=== PATIENT | female | born 1945 | race Caucasian/White ===

== ENCOUNTER 2025-03-05 13:27 | Inpatient (IN) | payer OTHER, SELFPAY ==
[2025-03-04] VITALS (7 sets, daily range): BP systolic 127–150; BP diastolic 51–68; BMI 24.5
--- NOTE | 2025-03-04 14:38 | ED.GENMED ---
History of Present Illness
<Sarah Palm PA-C - Last Filed: 03/04/25 22:27>
General
Chief Complaint: Fall
Source: patient
Exam Limitations: none
Time Seen by Provider: 03/04/25 14:21
Nursing documentation reviewed up to this point in time: agreed with
History of Present Illness
History of Present Illness:
Patient is an 80-year-old female who presents to the emergency department with left hip pain after mechanical fall just prior to arrival. Patient states she missed a step while walking falling backwards and landing on her left hip. She is adamant
that there was no head strike or loss of consciousness. Patient has had significant pain in her left hip/groin since fall and has been unable to weight-bear.
She denies any numbness/tingling of left lower extremity. No pain in her upper extremities. She denies any headache, neck pain, back pain.
She is not on any oral anticoagulation.
Review of Systems
<Sarah Palm PA-C - Last Filed: 03/04/25 22:27>
Review of Systems
Allergies reviewed?: Yes
All Other Systems: ROS reviewed and negative except as documented in HPI and ROS
Phy Exam
<Sarah Palm PA-C - Last Filed: 03/04/25 22:27>
Physical Exam
Physical Exam:
Vitals: Hypertensive, otherwise vital signs stable. Afebrile
General: Patient is uncomfortable appearing due to pain
Skin: Warm and dry, no rashes or lesions
Head: Normocephalic, atraumatic
Eyes: Sclera nonicteric. EOMs intact. No nystagmus.
Throat: Protecting airway
Neck: Normal ROM, no cervical spine tenderness, no meningismus
Cardiac: Regular rate and rhythm, no murmurs.
Pulm: Normal respiratory effort, no wheezes, rales, rhonchi heard on exam
Abdomen: Abdomen soft and nontender. No ecchymoses
Extremities: No obvious deformity of left lower extremity. Significant tenderness to palpation in left inguinal region. Pain with both internal/external rotation of left hip. Abrasion/ contusion noted to left buttock. Normal sensation and
capillary refill in LLE. 2+ palpable DP pulses bilaterally.
Neuro: AAOx3. Grossly intact.
Psychiatric: Normal affect.
Course
<Sarah Palm PA-C - Last Filed: 03/04/25 22:27>
Orders/Labs/Results
Orders:
Orders
03/04/25 14:16
Hip, Left 2-3 Views [CR Hip - LT w/wo Pel 2-3 Vw*] Urgent
Comment:
Reason For Exam: fall
Include a pelvis x-ray?: Yes
03/04/25 14:49
Acetaminophen [Tylenol] 650 mg PO NOW STA
03/04/25 Dinner
Regular
At Your Request: Full Participation
03/04/25 15:14
Basic Metabolic Panel Urgent
Complete Blood Count/With Diff Urgent
03/04/25 15:35
Morphine Sulfate 4 mg IV NOW STA
03/04/25 15:43
Admit/Transfer Patient As Directed
Co-Sign Provider:
Level of Care: Observation services
Assign to:: Medical/Surgical
Physician / Group: Evangelista Sorto
Diagnosis: pelvic fracture
03/04/25 15:44
Code Status As Directed
Resuscitation Status: Full Code
PRN Pain Medication Management As Directed
May give lesser potent ordered pain med per pt: Yes
preference::
Protocol:: Medication orders for pain may be administered in a
manner that supports deferring to patient preference
when the pt is:
- Requesting an ordered lesser potent pain medication.
Least to most potent pain medications are defined
as: acetaminophen < NSAID < tramadol < opioids
(morphine, oxycodone, hydromorphone).
- Requesting a lesser dose of the same medication IF
ORDERED.
- Requesting a less intrusive route of administration
if both routes are prescribed by the provider (PO <
IV).
03/04/25 19:45
Acetaminophen [Tylenol] 650 mg PO Q4HPRN PRN
Bisacodyl [Dulcolax] 10 mg RECTAL [id number] PRN
Docusate W/Senna [Senokot-S] 1 tablet PO BIDPRN PRN
Enoxaparin Sodium [Lovenox] 40 mg SC QPM
Ketorolac [Toradol] 10 mg IV Q6HPRN PRN
Morphine Sulfate 2 mg IV Q4HPRN PRN
Polyethylene Glycol Powder [Miralax] 17 grams PO DAILYPRN PRN
03/04/25 19:45
Activity As Directed
Activity Level: As Tolerated
Vital Signs As Directed
Frequency: Per unit guidelines
Weight As Directed
Frequency: Once
Comment: on admission
Pt Eval And Treat Routine
Activity Level: As Tolerated
DX Deep Vein Thrombosis Video Routine
03/11/25 08:00
Levothyroxine [Synthroid] 487.5 mcg PO AVILES
Abnormal Lab Results
03/04/25
15:14
Absolute Monos (auto) 0.7 H 10^3/uL
(0.1-0.6)
Lymphocytes % 14.6 L %
(20.5-51.1)
Glucose 135 H mg/dl
(70-99)
03/04/25 15:14
03/04/25 15:14
Vital Signs
Initial and Last Documented VS:
Initial Vital Signs
BP
150/55
03/04/25 14:03
Last Documented Vital Signs
Temp Pulse Resp BP Pulse Ox
98.4 F 91 20 139/68 97
03/04/25 19:54 03/04/25 19:54 03/04/25 19:54 03/04/25 19:54 03/04/25 19:54
<Ramo IamNeema Quiñones DO - Last Filed: 03/04/25 16:11>
Orders/Labs/Results
Orders:
Orders
03/04/25 14:16
Hip, Left 2-3 Views [CR Hip - LT w/wo Pel 2-3 Vw*] Urgent
Comment:
Reason For Exam: fall
Include a pelvis x-ray?: Yes
03/04/25 14:49
Acetaminophen [Tylenol] 650 mg PO NOW STA
03/04/25 Dinner
Regular
At Your Request: Full Participation
03/04/25 15:14
Basic Metabolic Panel Urgent
Complete Blood Count/With Diff Urgent
03/04/25 15:35
Morphine Sulfate 4 mg IV NOW STA
03/04/25 15:43
Admit/Transfer Patient As Directed
Co-Sign Provider:
Level of Care: Observation services
Assign to:: Medical/Surgical
Physician / Group: Evangelista Sorto
Diagnosis: pelvic fracture
03/04/25 15:44
Code Status As Directed
Resuscitation Status: Full Code
PRN Pain Medication Management As Directed
May give lesser potent ordered pain med per pt: Yes
preference::
Protocol:: Medication orders for pain may be administered in a
manner that supports deferring to patient preference
when the pt is:
- Requesting an ordered lesser potent pain medication.
Least to most potent pain medications are defined
as: acetaminophen < NSAID < tramadol < opioids
(morphine, oxycodone, hydromorphone).
- Requesting a lesser dose of the same medication IF
ORDERED.
- Requesting a less intrusive route of administration
if both routes are prescribed by the provider (PO <
IV).
03/04/25 19:45
Acetaminophen [Tylenol] 650 mg PO Q4HPRN PRN
Bisacodyl [Dulcolax] 10 mg RECTAL [id number] PRN
Docusate W/Senna [Senokot-S] 1 tablet PO BIDPRN PRN
Enoxaparin Sodium [Lovenox] 40 mg SC QPM
Ketorolac [Toradol] 10 mg IV Q6HPRN PRN
Morphine Sulfate 2 mg IV Q4HPRN PRN
Polyethylene Glycol Powder [Miralax] 17 grams PO DAILYPRN PRN
03/04/25 19:45
Activity As Directed
Activity Level: As Tolerated
Vital Signs As Directed
Frequency: Per unit guidelines
Weight As Directed
Frequency: Once
Comment: on admission
Pt Eval And Treat Routine
Activity Level: As Tolerated
DX Deep Vein Thrombosis Video Routine
03/11/25 08:00
Levothyroxine [Synthroid] 487.5 mcg PO AVILES
Abnormal Lab Results
03/04/25
15:14
Absolute Monos (auto) 0.7 H 10^3/uL
(0.1-0.6)
Lymphocytes % 14.6 L %
(20.5-51.1)
Glucose 135 H mg/dl
(70-99)
03/04/25 15:14
03/04/25 15:14
Vital Signs
Initial and Last Documented VS:
Initial Vital Signs
BP
150/55
03/04/25 14:03
Last Documented Vital Signs
Temp Pulse Resp BP Pulse Ox
98.4 F 91 20 139/68 97
08/24/25 19:54 03/04/25 19:54 03/04/25 19:54 03/04/25 19:54 03/04/25 19:54
<Sarah Palm PA-C - Last Filed: 03/04/25 22:27>
MDM/Problems Addressed
Differential Diagnosis Includes:
Not limited to: Hip fracture, hip dislocation, pelvic fracture, contusion, etc.
MDM/Problems Addressed:
80-year-old female with left hip pain and inability to bear weight following mechanical fall today. There was no head strike or loss of consciousness. Vitals and physical exam as above. No evidence of head or neck trauma. No evidence of back, chest,
or abdominal trauma. No deformity noted to left lower extremity however does have significant tenderness to palpation in left groin and with any movement of left hip, as well as at rest. Will treat pain. X-ray of left hip pending.
Update: x-ray of left hip w/ suspected pelvis fractures of pubic rami on left side. Given degree of pain and inability to ambulate � will admit patient for pain control, possible rehab placement. Official report pending. Hospitalist aware.
Update: Radiology read of left hip x-ray does reveal additional acetabular fracture as well as inferior pubic rami fracture. Case discussed w/ orthopedics, Dr. Krause at this point. Will obtain pelvic CT.
Update: Pelvis CT reviewed by orthopedics, Dr. Krause, which does confirm acetabular fracture. Recommendation by orthopedics given age � likely non-operative, [id number] and outpatient orthopedic follow up. Discussed at length w/ patient
who is currently visiting from [place]. Will continue with plan of admission for pain control, and possible placement. She will plan for likely orthopedic follow up back in [place] once arriving home.
Orthopedic recommendations discussed directly with admitting hospitalist team, Gillian AVELAR, including recommendation for anticoagulation for trip back to [place].
Chronic conditions affecting care:
N/A
Acute Exacerbation and/or Progression of Chronic Illness:
N/A
<Sarah Palm PA-C - Last Filed: 03/04/25 22:27>
*Radiology
Radiology exam reviewed: preliminary read by ED provider (Left hip xray reviewed by me - inferior pubic rami fracture) and radiology read reviewed
*Pulse Oximetry
SaO2: 99
Oxygen Mode of Delivery: Room air
Patient hypoxic: no
*EKG
Interpreted by ED Provider?: NA
*Scraper Hand Interpretation
Rate: Scraper Hand- N/A
*Critical Care Note
Total Time (30-74mins, 75-104mins- exclusive of procedures): Not Applicable
<Sarah Palm PA-C - Last Filed: 03/04/25 22:27>
Patient Management
Discussion with other providers: Hospitalist and Cellar [facility] (Case discussed with orthopedics)
ED Attending Note
<Sarah Palm PA-C - Last Filed: 03/04/25 22:27>
-
Portions of this chart may have been created with voice recognition software.� Occasional wrong word or��sound alike� substitutions may have occurred due to the inherent limitations of voice recognition software.
<Ramo Quiñones, - Last Filed: 03/04/25 16:11>
ED Attending Note
Patient seen and examined by attending physician: Yes
I performed the substantive portion of visit, reviewed & personally made and approve the management plan that is documented in note by myself or GABRIELLE.: Yes
ED Attending Note:
Patient suffered a fall after losing her balance. Patient complaining of pain to her left hip and pelvis. Patient traveling from [place].
General: Awake, Alert, Oriented X3. Appears uncomfortable
Vitals: unremarkable
Head: Atraumatic
Eyes: Pupils equal, EOMI
Throat: Airway intact, no exudates
Neck: Trachea midline
Abd: Soft, Nontender, No pulsatile mass
Neuro: Nonfocal
Skin: Warm, dry, no rash
Extremities: pulses equal b/l, no edema. Pain with minimal range of motion left hip.
X-ray shows pubic ramus fracture. Awaiting final report. Patient will require hospitalization for pain control
Discharge Plan
Departure
Patient Disposition: Admit
Date of Disposition: 03/04/25
Time of Disposition: 15:02
Presentation/result/management discussed w/ accepting MD/DO: Hospitalist
Discharge Problem:
Pelvic fracture, Acetabular fracture
Interventions
Interventions:
*Risk Screen - Suicide Last Done: 03/04/25 15:10
*General Assessment Last Done: 03/04/25 15:10
*Neglect/Abuse Screening Last Done: 03/04/25 15:10
*ED- Fall Risk Assessment Last Done: 03/04/25 15:10
*ED COVID-19 Vaccine History Last Done: 03/04/25 19:37
*Nursing Disposition Last Done: 03/04/25 19:37
ED-Musculoskeletal Assessment Last Done: 03/04/25 13:59
ED- Neurological Assessment Last Done: 03/04/25 13:59
ED-Skin Assessment Last Done: 03/04/25 13:59
Discharge Date and Time
Discharge Date/Time: 03/04/25 19:38
[2025-03-04] MEDS: TYLENOL 650 MG PO (15:11)
--- NOTE | 2025-03-04 15:12 | HPS.HSE ---
Addendum entered and electronically signed by Evangelista Sorto MD 03/04/25 16:29:
This is an addendum to H&P written by Nayely Busby on 03/04/2025. �Patient seen and examined independently with [facility]TER.
80-year-old female [facility] hypothyrodism, osteoporosis who lives in [place] past medical history of presenting with left hip and groin pain with inability to bear weight after mechanical fall. �No head injury. �Denies numbness or tingling.
Vital signs normal.
Hip x-ray shows comminuted left acetabular fracture extending into the left iliac wing/pubic rami fracture. �There is additional fracture of the left inferior pubic ramus.
Pain control. �PT/OT.
Original Note:
Family Physician
-
Family Physician:
Chief Complaint
-
mechanical fall
History of Present Illness
Patient is a 80-year-old female with past medical history significant for hypothyroidism who presented to [facility] ED for evaluation s/p mechanical fall. Patient and spouse visiting the area from [place], they were at lunch this afternoon with family when
patient was trying to take a picture took a step backwards and misstepped on curb falling backwards on left hip. She denies any other injuries and denies head strike.
Medical History
Past Medical History
Past Medical History: Reports Other
Additional Past Medical History:
hypothyroidism
osteoporosis
ALIS
Hx endometrial cancer 2001 (chemo/radiation/SHAJI)
Past Surgical History: Reports Other
Additional Past Surgical History:
appendectomy
total hysterectomy
cholecystectomy
Social History
Tobacco: Non-smoker
Alcohol: Occasional
Drug: None
Personal:
Living: With Family
Employment: Retired
Family History
Family History: Not pertinent
Allergies / Home Medications
Allergies reflects when Allergies were last updated in [facility].
Home Medications with original date entered in [facility]
Allergy/Medication List:
Allergies
Allergy/AdvReac Type Severity Reaction Status Date / Time
Sulfa (Sulfonamide Allergy Unknown Unknown Verified 03/04/25 15:14
Antibiotics)
terfenadine (From Seldane) Allergy Unknown Unknown Verified 03/04/25 15:14
Home Medications
levothyroxine 75 mcg tablet 487.5 mcg PO AVILES 03/04/25
Review of Systems
-
History Source: Patient
Constitutional: Reports No Symptoms
EENT: Reports No Symptoms
Respiratory: Reports No Symptoms
Cardiac: Reports No Symptoms
Abdomen/GI: Reports No Symptoms
: Reports No Symptoms
Musculoskeletal: Reports Joint Pain (left hip pain)
Skin: Reports No Symptoms
Neurological: Reports No Symptoms
Endocrine: Reports No Symptoms
Hematologic/Lymphatic: Reports No Symptoms
Psych: Reports No Symptoms
Physical Exam
Vital Signs
Vital Signs
Temp Pulse Resp BP Pulse Ox
98.0 F 92 18 150/55 99
03/04/25 14:04 03/04/25 14:04 03/04/25 14:04 03/04/25 14:04 03/04/25 14:39
Physical Exam
General: Well Developed, Well Nourished, No Apparent Distress and Conversant
HEENT: NormoCephalic, Moist mucous membranes and Atraumatic
Respiratory: Clear and Non Labored Respirations
Cardiac: S1/S2 and Regular Rhythm; No Murmur, Rub or Gallop
GI: Soft, Non Tender, Non Distended and Normal Bowel Sounds; No Organomegaly
Musculoskeletal: No Clubbing, No Cyanosis, No Edema and Other (left hip discomfort with movement and rest )
Skin: Warm and IV/Catheter Site
Neuro: Awake, AO x 3 and Nonfocal/grossly intact
Hematologic/Lymphatic: No Lymphadenopathy
Psych: Calm and Intact Judgment/Insight
Data Reviewed
-
Diagnostic Radiology: Report Reviewed by me (Lt hip: There is a comminuted left acetabular fracture extending into the left iliac wing. There is an additional fracture of the left inferior pubic ramus. )
Lab Data: Labs Reviewed by me
Impression/Plan
-
IMPRESSION/PLAN:
#pelvic fracture 2/2 mechanical fall
#osteoporosis
Left Hip x-ray: There is a comminuted left acetabular fracture extending into the left iliac wing. There is an additional fracture of the left inferior pubic ramus.
- Admit to med/surg
- Consult PT
- pain regimen
#hypothyroidism
- continue levothyroxine
#ALIS
CPAP HS
Code status: full code
DVT prophalaxis: Lovenox sq
[2025-03-04 15:25] LABS: Hematocrit 37.4 % (37.0-47.0); Hemoglobin 12.7 g/dL (12.0-16.0); Mean Corp Hgb Conc. 34.0 g/dL (33.0-37.0); Mean Corpuscular Volume 89.0 fL (81.0-99.0); Nucleated Red Blood Cells % 0 %; Platelet Count 196 10^3/uL (130-400); Red Cell Dist. Width 12.9 % (11.5-14.5)
[2025-03-04 15:35] LABS: Blood Urea Nitrogen 17 mg/dl (7-17); Calcium 9.2 mg/dl (8.4-10.2); Carbon Dioxide 29 mmol/L (22-30); Chloride 107 mmol/L (98-107); Estimated Creatinine Clearance 37 ml/min; Glucose 135 mg/dl (70-99); Potassium 3.8 mmol/L (3.5-5.1); Sodium 138 mmol/L (135-145); eGFR 56.25
[2025-03-04] MEDS: MORPHINE SULFATE 4 MG IV (15:53)
--- NOTE | 2025-03-04 15:57 | CM ---
CM reviewed chart and met with pt bedside in ED. Pt lives with her in [place], 2 story home with 2 DILLON, first floor BA. Currently staying with her 's brother and his family in [place], 2 story house with first floor DE and
full BA in MBR. No DILLON.
Independent in ADLs, personal care and ambulation at baseline, no assistive devices.
CALLE reviewed and signed. Confirms prescription coverage.
No hx VN or SNF.
PCP in [place]: [facility] Welch
Local Pharmacy: [facility] [place]
CM will continue to follow for any discharge planning needs.
[2025-03-04] MEDS: LOVENOX 40 MG SC (20:26)
[2025-03-04] MEDS: TORADOL 10 MG IV (20:37)
--- NOTE | 2025-03-04 20:53 | PTCARENOTE ---
Pt. arrived to unit from ED via stretcher. Pt. pulled over from stretcher to bed in room 317-1 on . Pt. AAOx3 and able to make needs known. Oriented to unit. Call murcia within reach. Plan of care ongoing.
[2025-03-05] MEDS: MORPHINE SULFATE 2 MG IV ×3 (02:45→17:50)
[2025-03-05] MEDS: TORADOL 10 MG IV ×2 (06:09→12:28)
[2025-03-05 07:00] VITALS: BP 153/56
--- NOTE | 2025-03-05 08:34 | PTOTSP ---
Please order OT consult for ADL dysfunction. Thank you.
--- NOTE | 2025-03-05 10:23 | CON.ORTHO ---
Consultation
-
Date/Time Consultation Requested: 03/04/2025; time unknown
Date/Time Consultation Performed: 03/05/2025
Requesting Provider: unknown
Performing Provider: Larisa Saunders PA-C
Reason for Consultation: Left acetabulum fracture
Consultation - Orthopedics
History
Ms. Villafana is an 80 year old female with PMH of hypothyroidism and osteoporosis seen today for her left hip. She reports she stepped back off a curb and fell backwards. She experienced immediate onset of pain in her hip, and was unable to get up off
the ground. She was brought to ED via EMS where x-rays revealed a comminuted acetabular fracture and inferior pubic ramus fracture. She is resting in bed this morning, but does endorse persistent discomfort about the hip. She also endorses pain
in her low back, but believes this is due to laying down. She is visiting from [place].
Allergies / Home Medications
Allergy/AdvReac Type Severity Reaction Status Date / Time
Sulfa (Sulfonamide Allergy Unknown Unknown Verified 03/04/25 15:14
Antibiotics)
terfenadine (From Seldane) Allergy Unknown Unknown Verified 03/04/25 15:14
�Medication �Instructions �Recorded
calcium carbonate 975 mg-magnesium 1 tab PO BID Supplement 03/04/25
carbonate 232 mg oral tablet
levothyroxine 75 mcg tablet 487.5 mcg PO AVILES Thyroid 03/04/25
Vital Signs / Lab Results
Temp Pulse Resp BP Pulse Ox
98.5 F 78 16 153/56 98
03/05/25 07:00 03/05/25 07:00 03/05/25 07:00 03/05/25 07:00 03/05/25 07:00
03/04/25 15:14
03/04/25 15:14
XR Left Hip IMPRESSION:
There is a comminuted left acetabular fracture extending into the left iliac wing. There is an additional fracture of the left inferior pubic ramus.
CT Pelvis IMPRESSION:
There is a highly comminuted and mildly displaced fracture of the left acetabulum involving the anterior and posterior columns with extension into the left iliac wing extending up to the anterior inferior iliac spine. There is associated adjacent
mild soft tissue swelling with a 3.7 cm hematoma in the left iliacus muscle.
Mildly displaced left inferior pubic ramus fracture.
Directed exam of the left lower extremity reveals no obvious erythema, ecchymosis, edema or lesions. Mild tenderness to palpation about the hip. Discomfort with log roll. Calf soft and nontender. Neurovascularly intact distally.
Assessment / Plan
Comminuted, mildly displaced acetabular fracture; inferior pubic ramus fracture
--Unfortunately, Rayna sustained the above fractures in her fall. Thankfully, these are minimally displacedand can be managed non-operatively. She should be NWB to her LLE. She may perform gentle ROM of the hip as tolerated. Pain control prn.
Patient would likely benefit from PT/OT while in house. Case management for dc planning. We would be happy to see the patient as an outpatient, but she may also follow up with orthopedics once she returns home. Would recommend DVT prophylaxis for
travel back to [place]. Orthopedics will sign off for now. Please reengage with any additional orthopedic questions or concerns.
--- NOTE | 2025-03-05 11:39 | W.PN.HOSP.TC ---
Today's Communication/Plan
-
pain control
oob/pt/ot
Assessment / Plan
Assessment / Plan
#Comminuted, mildly displaced acetabular fracture;
#inferior pubic ramus fracture
#3.7 cm hematoma in the left iliacus muscle.
worsening in setting of ?osteopenia
- Pain control. Bowel regimen.
- Nonweightbearing per orthopedics.
- Nonoperative management per orthopedic
- Appreciate orthopedic input
- Await PT/OT
#hypothyroidism
-on unusual regimen of 487.5mcg weekly
#ALIS
CPAP HS
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
Code status: full code
DVT prophalaxis: Lovenox sq
Discussed with patient at bedside in detail
Anticipated Discharge: Within 24 hours
Subjective/Interval History
-
Date of Service: March 05, 2025
states of L hip/groin pain
Patient visiting from [place]
Objective Data
-
Vital Signs:
Vital Signs
Temp Pulse Resp BP Pulse Ox
98.5 F 78 16 153/56 98
03/05/25 07:00 03/05/25 07:00 03/05/25 07:00 03/05/25 07:00 03/05/25 07:00
I&O
03/04/25 03/05/25 03/06/25
06:59 06:59 06:59
Intake Total 200 / 200
Output Total 320 / 320
Balance -120 / -120
Physical Exam
-
General: Well Developed and No Apparent Distress
HEENT: Normocephalic, Atraumatic and Moist Mucous Membranes
Respiratory: Clear to Auscultation
Cardiac: Regular Rhythm and S1/S2; Negative Murmur, Rub or Gallop
GI: Soft, Nontender, Nondistended and Normal Bowel Sounds; Negative Organomegaly
Rectal: Deferred by Provider
Musculoskeletal: No Edema
Skin: Negative Rash
Neuro: Awake, Alert, Oriented, AO x 3, No Motor Deficits and Nonfocal/Grossly Intact
Psych: Calm
[2025-03-05 12:25] VITALS: BP 148/65; PULSE 83; O2SAT 96
[2025-03-05 12:26] VITALS: BP 148/65; PULSE 83; O2SAT 96
[2025-03-05 15:00] VITALS: BP 128/60
[2025-03-05] MEDS: LOVENOX 40 MG SC (17:49)
[2025-03-05 23:17] VITALS: BP 142/57
[2025-03-06] MEDS: TYLENOL 650 MG PO (02:32)
[2025-03-06 08:07] VITALS: BP 140/55
--- NOTE | 2025-03-06 08:22 | PN.CDI ---
CDI
- -
CDI:
Physician Documentation Request
Admit Date: 03/05/25 13:27
Dear Doctor Luna,
Please review the following and provide your response in the progress notes.
Clinical Indicators:
Pt admitted with Comminuted, mildly displaced acetabular fracture; inferior pubic ramus fracture and a 3.7 cm hematoma in the left iliacus muscle.
03/04 CT Pelvis: There is a highly comminuted acetabular fracture involving the anterior and posterior columns. This extends into the left iliac wing extending anterior to the left anterior inferior iliac spine. There is an associated hematoma within
the left iliac is unremarkable measuring approximately 3.7 cm in thickness. There is mild sclerosis of the bilateral sacroiliac joints. Diffuse osteopenia. There is additional mildly displaced fracture through the left inferior pubic ramus.
03/05 Orthopedics: 'Ms. Villafana is an 80 year old female with PMH of hypothyroidism and osteoporosis seen today for her left hip. She reports she stepped back off a curb and fell backwards.'
03/05 Progress note: ' #Comminuted, mildly displaced acetabular fracture;
#inferior pubic ramus fracture
#3.7 cm hematoma in the left iliacus muscle.
worsening in setting of ?osteopenia'
Please provide further specificity regarding the diagnosis of fracture:
Etiology
Traumatic
Pathologic due to osteoporosis
Due to a combination of trauma and a pathological process
but the trauma alone would not likely have been sufficient
to cause the fracture
Other
Use of terms such as suspected, likely, concern for, or probable (associated with a specific diagnosis that is being evaluated, monitored, or treated as if it exists) are acceptable and can be coded in the inpatient setting, when documented at the
time of discharge.
Thank you,
Lizy Brooks RN, BSN
CDI Specialist
[place] [facility]
Please use your independent medical judgment in providing your response.
--- NOTE | 2025-03-06 11:04 | CM ---
Addendum entered by Lalo Heck 03/06/25 12:11:
[facility] offered a bed and an auth requested. Both pt and her are aware, expressed their agreement.
[facility]
Accepting physician: Dr. Sena Prieto
CM initiated an auth from [facility] [phone], spoke to specialty sales representative Yissel, required prior authorization form printed from [email or web address] website, completed and with pt's clinical and [facility] NPI
faxed to [facility] for review [phone].
Awaiting for an authorization
D/C plan: [facility] when an auth available.
CM will follow to assit pt with discharge to [facility].
Original Note:
CM following re: discharge planning.
Reviewed pt's chart, met with pt and pt's at bedside.
PT and OT evaluations noted - SNF level of care recommended. Both pt and her are aware, expressed their agreement. A list of SNFs provided. both pt and her stated they are staying at brother's house at [facility] and they
requested a SNF in [facility].
A referral made to following SNFs: [facility], [facility]. [facility]. A referral to above SNfs made. Awaiting for determination.
IMM reviewed, placed on chart, pt has a copy.
D/c plan: preferred SNF
CM will follow to assist pt with discharge to a preferred SNF.
--- NOTE | 2025-03-06 11:25 | W.PN.HOSP.TC ---
Today's Communication/Plan
-
await placement
pain control
Assessment / Plan
Assessment / Plan
General: Well Developed and No Apparent Distress
HEENT: Normocephalic, Atraumatic and Moist Mucous Membranes
Respiratory: Clear to Auscultation
Cardiac: Regular Rhythm and S1/S2;
GI: Soft, Nontender, Nondistended and Normal Bowel Sounds; Negative Organomegaly
Musculoskeletal: No Edema
Skin: Negative Rash
Neuro: Awake, Alert, Oriented, AO x 3, No Motor Deficits and Nonfocal/Grossly Intact
Psych: Calm
#Comminuted, mildly displaced acetabular fracture likely multifactorial in the setting of trauma from the fall and diffuse osteopenia
#inferior pubic ramus fracture
#3.7 cm hematoma in the left iliacus muscle.
- Pain control. Bowel regimen.
- Nonweightbearing per orthopedics.
- Nonoperative management per orthopedic
- Appreciate orthopedic input
- PT/OT rec SNF
#hypothyroidism
-on unusual regimen of 487.5mcg weekly. Per patient her thyroid function and blood work has been normal and she has been continued on this regiment by her doctors in [place].
#ALIS
CPAP HS
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
Code status: full code
DVT prophalaxis: Lovenox sq
Discussed with patient at bedside in detail
PT/OT recs SNF. Cm aware. Await placement.
Anticipated Discharge: Today
Subjective/Interval History
-
Date of Service: March 06, 2025
states of dull achy left leg pain
Objective Data
-
Vital Signs:
Vital Signs
Temp Pulse Resp BP Pulse Ox
98.6 F 77 14 140/55 99
03/06/25 08:07 03/06/25 08:07 03/06/25 08:07 03/06/25 08:07 03/06/25 08:07
I&O
03/05/25 03/06/25 03/07/25
06:59 06:59 06:59
Intake Total 200 / 200 1120 / 1120
Output Total 320 / 320
Balance -120 / -120 1120 / 1120
[2025-03-06] MEDS: ROXICODONE 5 MG PO (12:22)
[2025-03-06 15:35] VITALS: BP 122/50
[2025-03-06 15:55] VITALS: BP 135/58; PULSE 108
[2025-03-06 15:57] VITALS: BP 135/58; PULSE 108
[2025-03-06] MEDS: LOVENOX 40 MG SC (17:08)
[2025-03-06] MEDS: TYLENOL 1000 MG PO ×2 (17:08→21:27)
[2025-03-06 23:00] VITALS: BP 121/52
[2025-03-07] MEDS: ROXICODONE 5 MG PO ×2 (06:19→16:10)
[2025-03-07 07:50] VITALS: BP 123/53
[2025-03-07] MEDS: TYLENOL 1000 MG PO ×3 (08:04→21:00)
[2025-03-07] MEDS: MIRALAX 17 GRAMS PO (10:25)
--- NOTE | 2025-03-07 11:43 | W.PN.HOSP.TC ---
Today's Communication/Plan
-
pain control
rehab
await placement
Assessment / Plan
Assessment / Plan
General: Well Developed and No Apparent Distress
HEENT: Normocephalic, Atraumatic and Moist Mucous Membranes
Respiratory: Clear to Auscultation
Cardiac: Regular Rhythm and S1/S2;
GI: Soft, Nontender, Nondistended and Normal Bowel Sounds; Negative Organomegaly
Musculoskeletal: No Edema
Skin: Negative Rash
Neuro: Awake, Alert, Oriented, AO x 3, No Motor Deficits and Nonfocal/Grossly Intact
Psych: Calm
#Comminuted, mildly displaced acetabular fracture likely multifactorial in the setting of trauma from the fall and diffuse osteopenia
#inferior pubic ramus fracture
#3.7 cm hematoma in the left iliacus muscle.
- Pain control. tylenol 1000mg TID. Oxycodone prn. Morphine for severe pain only. Bowel regimen.
- Nonweightbearing per orthopedics.
- Nonoperative management per orthopedic
- Appreciate orthopedic input
- PT/OT rec SNF
#hypothyroidism
-on unusual regimen of 487.5mcg weekly. Per patient her thyroid function and blood work has been normal and she has been continued on this regiment by her doctors in [place].
#ALIS
CPAP HS
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
Code status: full code
DVT prophalaxis: Lovenox sq
Discussed with patient at bedside in detail
PT/OT recs SNF. Cm aware. Await placement.
Anticipated Discharge: Today
Subjective/Interval History
-
Date of Service: March 07, 2025
states mild improvement in left hip pain today
Objective Data
-
Vital Signs:
Vital Signs
Temp Pulse Resp BP Pulse Ox
97.9 F 78 14 123/53 96
03/07/25 07:50 03/07/25 07:50 03/07/25 07:50 03/07/25 07:50 03/07/25 07:50
I&O
03/06/25 03/07/25 03/08/25
06:59 06:59 06:59
Intake Total 1120 / 1120 1560 / 1560
Balance 1120 / 1120 1560 / 1560
--- NOTE | 2025-03-07 11:53 | CM ---
Addendum entered by Kay Soria 03/07/25 12:09:
spoke with Lilliana and updated
Original Note:
Called [facility] and spoke with Lee Jackson ([phone]) regarding [facility] auth
still pending, not yet approved
PENDING Auth #: [id number]
await determination, they will fax auth & also gave her my phone #
PLAN: [facility], PENDING AUTH
[2025-03-07 15:47] VITALS: BP 142/69
[2025-03-07 16:25] VITALS: BP 145/61; PULSE 101
[2025-03-07] MEDS: LOVENOX 40 MG SC (17:44)
[2025-03-07 23:00] VITALS: BP 138/52
[2025-03-08 07:50] VITALS: BP 138/68
[2025-03-08] MEDS: TYLENOL 1000 MG PO ×2 (08:32→16:06)
--- NOTE | 2025-03-08 09:46 | CM ---
Addendum entered by Kay Soria 03/08/25 13:41:
Authorization approved for [facility]
APPROVED AUTH #: [id number]
Start date to 03/29/25
Amanda [phone] ext [phone] with updates
notified hospitalist, Gave all auth information to Lilliana at [facility]
IMM explained & signed. In chart
PLAN: [facility]
Report #: [phone]
Fax #: [phone]
transport forms on chart
Original Note:
Called [facility] Plan insurance [phone] & spoke with Hardeep who states auth is still pending-the request was escalated to the clinical team.
PENDING Auth #: [id number]
notified hospitalist
Notified Lilliana at [facility]
PLAN: [facility], PENDING AUTH approval
--- NOTE | 2025-03-08 10:46 | W.PN.HOSP.TC ---
Today's Communication/Plan
-
await auth
pain control/oob/rehab
Assessment / Plan
Assessment / Plan
General: Well Developed and No Apparent Distress, sitting in chair
HEENT: Normocephalic, Atraumatic and Moist Mucous Membranes
Respiratory: Nonlabored respiration
Cardiac: Regular Rhythm and S1/S2;
GI: Soft, Nontender, Nondistended and Normal Bowel Sounds; Negative Organomegaly
Musculoskeletal: No Edema
Skin: Negative Rash
Neuro: Awake, Alert, Oriented, AO x 3, No Motor Deficits and Nonfocal/Grossly Intact
Psych: Calm
#Comminuted, mildly displaced acetabular fracture likely multifactorial in the setting of trauma from the fall and diffuse osteopenia
#inferior pubic ramus fracture
#3.7 cm hematoma in the left iliacus muscle.
- Pain control. tylenol 1000mg TID. Oxycodone prn. Morphine for severe pain only. Bowel regimen.
- Nonweightbearing per orthopedics.
- Nonoperative management per orthopedic
- Appreciate orthopedic input
- PT/OT rec SNF
#hypothyroidism
-on unusual regimen of 487.5mcg weekly. Per patient her thyroid function and blood work has been normal and she has been continued on this regiment by her doctors in [place].
#ALIS
CPAP HS
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
Code status: full code
DVT prophalaxis: Lovenox sq
Discussed with patient at bedside in detail on daily basis
PT/OT recs SNF. Cm aware. Await placement.
Anticipated Discharge: Today
Subjective/Interval History
-
Date of Service: March 08, 2025
oob/sitting in chair
intermittent Left hip/leg spasms
Objective Data
-
Vital Signs:
Vital Signs
Temp Pulse Resp BP Pulse Ox
98.6 F 91 14 138/68 97
03/08/25 07:50 03/08/25 07:50 03/08/25 07:50 03/08/25 07:50 03/08/25 07:50
I&O
03/07/25 03/08/25 03/09/25
06:59 06:59 06:59
Intake Total 1560 / 1560 720 / 720
Balance 1560 / 1560 720 / 720
[2025-03-08 11:11] VITALS: BP 139/59; PULSE 103
--- NOTE | 2025-03-08 13:47 | W.DCSUMMARY ---
Discharge Summary
Discharge Data
Date of Admission: 03/05/25
Date of Discharge: 03/08/25
-
Pending Results: No
Hospital Course
80-year-old female past medical history of hypothyroidism, ALIS who is presenting after sustaining a mechanical fall. Patient underwent hip x-ray which showed There is a comminuted left acetabular fracture extending into the left iliac wing. There
is an additional fracture of the left inferior pubic ramus. Underwent Pelvis CT which showed There is a highly comminuted and mildly displaced fracture of the left acetabulum involving the anterior and posterior columns with extension into the left
iliac wing extending up to the anterior inferior iliac spine. There is associated adjacent mild soft tissue swelling with a 3.7 cm hematoma in the left iliacus muscle. Mildly displaced left inferior pubic ramus fracture. Patient was referred by
orthopedic. Orthopedic recommended nonweightbearing to left lower extremity. Nonoperative management. Pain control. Patient was eval by physical and Occupational Therapy. Pain was controlled. Patient will be discharged to long-term
facility. Lovenox was added as DVT ppx.
Discharge Plan
-
Patient Disposition: Snf/SNF
Discharge Diagnosis/Procedures: #Comminuted, mildly displaced acetabular fracture likely multifactorial in the setting of trauma from the fall and diffuse osteopenia
#inferior pubic ramus fracture
#3.7 cm hematoma in the left iliacus muscle.
Condition: Fair
Diet: Regular
Activity: Other activity
Additional Activity: She should be NWB to her LLE. She may perform gentle ROM of the hip as tolerated.
Driving Restrictions: Not until seen by your Dr
Referrals:
NONE,* [Family Provider, Internal Medicine] - in less than 1 week
Leland Krause MD [Active, Orthopedics] - in one month
Prescriptions:
New
enoxaparin 40 mg/0.4 mL Syringe
40 mg SC QPM 20 Days Qty: 8 0RF
sennosides-docusate sodium 8.6-50 mg Tablet
1 tab PO BID Qty: 20 0RF
acetaminophen [Tylenol Extra Strength] 500 mg Tablet
1,000 mg PO TID 10 Days Qty: 60 0RF
oxycodone 5 mg Tablet
5 mg PO TIDPRN PRN (Reason: severe pain) Qty: 9 0RF
Continued
levothyroxine 75 mcg Tablet
487.5 mcg PO AVILES
calcium and magnesium carbonat 975-232 mg Tablet
1 tab PO BID
Discharge Orders:
Discharge Patient (As Directed); Ordered 03/08/25
Ordered By: Patrick Carrasco
Discharge Date and Time
Print Language: AZERI
[2025-03-08 14:32] VITALS: BP 136/65
[2025-03-08] MEDS: LOVENOX 40 MG SC (17:07)
== END 2025-03-08 17:54 | DRG 535 ==
LOC: 3 WEST ACU 13:27
PROVIDERS: Physician Assistant; ADMITTING PHYSICIAN Hospitalist; ATTENDING PHYSICIAN Hospitalist; CONSULT PHYSICIAN Orthopaedic Surgery Hand Surgery; EMERGENCY PHYSICIAN Emergency Medicine
DX: S32.592A Other specified fracture of left pubis, initial encounter for closed fracture (principal); S32.432A Displaced fracture of anterior column [iliopubic] of left acetabulum, initial encounter for closed fracture; S32.442A Displaced fracture of posterior column [ilioischial] of left acetabulum, initial encounter for closed fracture; E03.9 Hypothyroidism, unspecified; G47.33 Obstructive sleep apnea (adult) (pediatric); W10.1XXA Fall (on)(from) sidewalk curb, initial encounter; Y93.89 Activity, other specified; Y92.480 Sidewalk as the place of occurrence of the external cause; Z85.42 Personal history of malignant neoplasm of other parts of uterus; Z92.21 Personal history of antineoplastic chemotherapy; Z92.3 Personal history of irradiation; Z90.710 Acquired absence of both cervix and uterus; Z90.49 Acquired absence of other specified parts of digestive tract; Z88.2 Allergy status to sulfonamides; Z88.8 Allergy status to other drugs, medicaments and biological substances; Z79.890 Hormone replacement therapy
CPT/HCPCS: 72192; 73502; 80048; 85025; 97110; 97163; 97167; 97530; 97535; 99285